=== PATIENT | female | born 1995 | race Caucasian/White ===

== ENCOUNTER 2016-04-03 14:01 | Emergency (ER) | payer OTHER ==
[~2016-04-03] VITALS: Ht 172.7 cm; Wt 65.8 kg
[~2016-04-03 14:01] MED LIST: AMOXICILLIN500 MG PO; CIPRO500 M1 PO; CUTIVATE0.05% TOP; IBUPROFEN800 MG PO; KEFLEX500 MG PO; MOTRIN 800MG T800 MG PO; NEXPLANON68 M1; PENICILLIN V P500 MG PO; PYRIDIUM100 M1 PO; TRIAMCINOLONE 0.1 GM TOP; [UNRECOGNIZED DRUG - OTHER] PO
--- NOTE | 2016-04-03 16:03 | ED UPPER/LOWER EXTREMITY COMPL ---
History of Present Illness General Chief Complaint: Lower Extremity Problems Stated Complaint: L LEG INFECTION? Source: patient Exam Limitations: no limitations Vital Signs & Intake/Output Vital Signs & Intake/Output Vital Signs Date Time Temp Pulse Resp B/P Pulse O2 O2 Flow FiO2 Ox Delivery Rate 04/03 1620 98.2 74 18 112/57 100 Room Air 04/03 1423 98.7 68 18 123/86 100 Room Air Allergies Coded Allergies: apple (Severe, ANAPHYLAXIS 06/23/15) peach (Severe, ANAPHYLAXIS 06/23/15) pear (Severe, ANAPHYLAXIS 06/23/15) Uncoded Allergies: ENVIRONMENTAL (Intermediate, WATERY EYES, CONGESTION 07/07/15) Reconcile Medications Ciprofloxacin HCl (Cipro) 500 MG TABLET 1 TAB PO BID PYELONEPHRITIS Doxycycline Hyclate 100 MG CAPSULE 1 CAP PO BID ABSCESS Etonogestrel (Nexplanon) 68 MG IMPLANT CONTROL (Reported) Hydrocodone/Acetaminophen (Vicodin 5-300 MG Tablet) 5 MG-300 MG TABLET 1 TAB PO BID PRN PAIN Phenazopyridine HCl (Pyridium) 100 MG TABLET 1 TAB PO TID DYSURIA yOUR URINE COLOR MAY CHANGE ORANGE WITH MEDICATION TAKE WITH FOOD Triage Note: 21 Y/O FEMALE C/O SWELLING AND REDNESS TO L LATERAL ANKLE/LOWER EXTREMITY. PT STATES SHE NOTICED A SMALL AREA LAST TUES THAT HAS PROGRESSIVELY GOTTEN LARGER, MORE INFLAMMED AND MORE RED. [facility] NOTED WITH SURROUNDING REDNESS. 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 PT STATES SHE HAS ALSO BEEN ON AUGMENTIN X 4 DAYS WITH NO IMPROVEMENT. AFEBRILE. PT DENIES DRAINAGE AT SITE. Triage Nurses Notes Reviewed? yes Onset: Gradual Duration: week(s): (1) Timing: no prior history Severity: moderate Severity Numbers: 8 Pain/Injury Location: Left: Leg. Method of Injury: unknown Modifying Factors: Improves With: immobilization. Worsens With: movement. : No Patient currently breastfeeds: No HPI: Patient is a 21-year-old female presenting to the emergency department with chief complaint of redness swelling and pain to the left lower extremity that started about one week ago progressively getting worse. Unsure if she was bitten by anything. She reports tactile fevers and chills. She's been on Augmentin for the past 4 days with little improvement in her symptoms. Denies taking anything for pain. 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 No history of similar symptoms. No known history of MRSA. Past History Travel History Traveled to [place] past 21 day No Medical History Any Pertinent Medical History? 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 No Review of Systems Review of Systems Constitutional: Reports: see HPI, chills, malaise. Comments Review of systems: See HPI, All other systems negative. Constitutional, no weight loss HEENT: No visual changes no sore throat no congestion Cardiovascular: No chest pain Skin, no jaundice no rashes Respiratory: No dyspnea cough sputum or hemoptysis GI: no vomiting Muscle skeletal: no back pain, no neck pain, Neurologic: No numbness Immunology: No splenectomy or history of AIDS Physical Exam Physical Exam General Appearance: well developed/nourished, no apparent distress, alert, awake , comfortable Comments: Well-developed well-nourished person in no acute distress HEENT: Pupils equally round and reactive to light and accommodation. Nose is atraumatic. Neck: Normal inspection Back: Nontender Cardiovascular: normal JVP Respiratory: No respiratory distress Extremity: Mild nonpitting edema noted to the left reeder area extending down to the lateral malleolus. Pedal pulses are 2+ bilaterally. Cap refill intact in lower extremities. Neuro: Alert oriented x3, motor sensory normal Skin: There is an area of erythema approximately 6 cm in diameter noted on the lateral aspect of the left reeder, fluctuance approximately 2-3 cm in size over the central acetaminophen this area. No discharge present. Very tender to palpation. Very warm. Psych: Mood and affect is normal, memory and judgment is normal. Progress Differential Diagnosis: cellulitis, asbcess Plan of Care: Orders Procedure Date/time Status Add-on Test (ER Only) 04/03 1737 Active EXTREMETIES CULTURE 04/03 1735 Active BLOOD CULTURE 04/03 1603 Active COMPREHENSIVE METABOLIC PANEL 04/03 1603 Complete CBC WITHOUT DIFFERENTIAL 04/03 1603 Complete Laboratory Tests 04/03/16 1614: Anion Gap 15, Estimated GFR > 60, BUN/Creatinine Ratio 9.1, Glucose 92, Calcium 10.5 H, Total Bilirubin 0.5, AST 23, ALT 22, Alkaline Phosphatase 118, Total Protein 9.4 H, Albumin 5.6 H, Globulin 3.8, Albumin/Globulin Ratio 1.5, CBC w Diff NO MAN DIFF REQ, RBC 5.65 H, MCV 78.0 L, MCH 25.6 L, RDW 15.7 H, MPV 7.3 L, Gran % 74.5, Lymphocytes % 21.0, Monocytes % 3.1, Eosinophils % 0.9, Basophils % 0.5, Absolute Granulocytes 7.4 H, Absolute Lymphocytes 2.1, Absolute Monocytes 0.3, Absolute Eosinophils 0.1, Absolute Basophils 0, PUBS MCHC 32.8 L Microbiology 04/03 173 EXTREMITIE: Culture & Sensitivity - ORD 04/03 173 EXTREMITIE: Gram Stain - ORD 04/03 161 BLOOD: Blood Culture - RECD Departure Departure Time of Disposition: 1727 Disposition: HOME OR SELF CARE Condition: Stable Clinical Impression Primary Impression: Abscess Referrals: ATTILA GIBSON,NICKOLAS Gates (PCP/Family) Additional Instructions: Return in 2 days for wound check. Take Augmentin and doxycycline as prescribed. Take Vicodin for severe pain. He can use [id number] Motrin as well. Elevate leg as much as possible. Return for worsening symptoms or concerns. Departure Forms: Customer Survey General Discharge Information Prescriptions: Current Visit Scripts Doxycycline Hyclate 1 CAP PO BID #20 CAP Hydrocodone/Acetaminophen (Vicodin 5-300 MG Tablet) 1 TAB PO BID PRN PAIN #10 TAB Procedures Incision and Drainage Site: left reeder Blade Size: 11 I & D Procedure: Yes: betadine prep, sterile drapes applied, sterile dressing applied. No: wick placed. Progress: small amt of purulent discharge expelled. Irrigated with saline and betadine. sterile dressign placed.
[2016-04-03 16:20] VITALS: BP 112/57
[2016-04-03 16:25] LABS: ABSOLUTE BASOPHIL COUNT 0 /CUMM (0.0-0.2); ABSOLUTE EOSINOPHIL COUNT 0.1 /CUMM (0.0-0.7); ABSOLUTE GRANULOCYTE CT 7.4 /CUMM (1.4-6.5); ABSOLUTE LYMPH COUNT 2.1 /CUMM (1.2-3.4); ABSOLUTE MONOCYTE COUNT 0.3 /CUMM (0.10-0.60); BASOPHIL % 0.5 % (0.0-2.0); EOSINOPHIL % 0.9 % (0-5); GRANULOCYTE % 74.5 % (42.2-75.2); HEMATOCRIT 44.1 % (37-47); MEAN CORPUSCULAR HGB 25.6 PG (27.0-31.0); MEAN CORPUSCULAR HGB CONC 32.8 G/DL (33.0-37.0); MEAN PLATELET VOLUME 7.3 FL (7.4-10.4); PLATELET COUNT 296 /CUMM (130-400); RBC DISTRIBUTION WIDTH 15.7 % (11.5-14.5); RED BLOOD CELL CT 5.65 /CUMM (4.20-5.40); WHITE BLOOD CELL COUNT 9.9 /CUMM (4.8-10.8)
[2016-04-03] MEDS ORDERED: DOXYCYCLINE HY100 M2 PO (17:31)
[2016-04-03] MEDS ORDERED: VICODIN 5-3001 EACH PO (17:31)
== END 2016-04-03 17:55 ==
LOC: ERH 14:01
PROVIDERS: Physician Assistant
DX: L02.416 Cutaneous abscess of left lower limb (principal)
CPT/HCPCS: 86618; 87184; 87040; 87070; 87147; 96374; 96375; J1885

== ENCOUNTER 2017-10-02 22:08 | Emergency (ER) | payer OTHER ==
[~2017-10-02] VITALS: Ht 165.1 cm; Wt 83.0 kg
[~2017-10-02 22:08] MED LIST changes: +DOXYCYCLINE HY100 M2 PO; +VICODIN 5-3001 EACH PO
--- NOTE | 2017-10-02 23:00 | ED GENERAL ADULT ---
History of Present Illness General Chief Complaint: General Adult Stated Complaint: RIGHT SIDE PAIN, NAUSEA PER PT Source: patient Exam Limitations: no limitations Vital Signs & Intake/Output Vital Signs & Intake/Output Vital Signs Date Time Temp Pulse Resp B/P B/P Pulse O2 O2 Flow FiO2 Mean Ox Delivery Rate 10/03 0038 98.9 97 18 119/73 98 Room Air 10/02 2354 99.3 98 18 124/83 10/02 2227 98 Room Air 10/02 2219 99.3 98 18 124/83 98 Room Air ED Intake and Output 10/03 0000 10/02 1200 Intake Total Output Total Balance Patient 183 lb Weight Allergies Coded Allergies: apple (Severe, ANAPHYLAXIS 06/23/15) peach (Severe, ANAPHYLAXIS 06/23/15) pear (Severe, ANAPHYLAXIS 06/23/15) Uncoded Allergies: ENVIRONMENTAL (Intermediate, WATERY EYES, CONGESTION 07/07/15) Reconcile Medications Cephalexin (Keflex) 500 MG CAPSULE 1 CAP PO BID UTI Ciprofloxacin HCl (Cipro) 500 MG TABLET 1 TAB PO BID PYELONEPHRITIS Doxycycline Hyclate 100 MG CAPSULE 1 CAP PO BID ABSCESS Etonogestrel (Nexplanon) 68 MG IMPLANT CONTROL (Reported) Hydrocodone/Acetaminophen (Vicodin 5-300 MG Tablet) 5 MG-300 MG TABLET 1 TAB PO BID PRN PAIN Phenazopyridine HCl (Pyridium) 100 MG TABLET 1 TAB PO TID UTI Phenazopyridine HCl (Pyridium) 100 MG TABLET 1 TAB PO TID DYSURIA yOUR URINE COLOR MAY CHANGE ORANGE WITH MEDICATION TAKE WITH FOOD Triage Note: 22F THINKS SHE MAY HAVE A KIDNEY STONE, REPORTS RIGHT FLANK PAIN RADIATING INTO ABDOMEN. REPORTS DECREASED URINARY OUTPUT, DENIES HEMATURIA OR DYSURIA. TEMP 99.3, HX OBSTRUCTIVE RENAL STONES W PYELONEPHRITIS. +N/-V/-D. Triage Nurses Notes Reviewed? yes Onset: Gradual Duration: hour(s): Timing: constant : No Patient currently breastfeeds: No HPI: 22 y/o female with a h/o obstructing renal stones presenting with right flank pain since this morning. States the pain feels similar to her prior kidney stones. Endorses associated dysuria and urinary frequency/urgency. Denies fevers , NVD, hematuria. Reports that her previous renal stone required stenting and lithotripsy. Past History Travel History Traveled to [place] past 21 day No Medical History Any Pertinent Medical History? 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 No Review of Systems Review of Systems Constitutional: Reports: no symptoms. EENTM: Reports: no symptoms. Respiratory: Reports: no symptoms. Cardiovascular: Reports: no symptoms. GI: Reports: see HPI. Genitourinary: Reports: see HPI. Musculoskeletal: Reports: no symptoms. Skin: Reports: no symptoms. Neurological/Psychological: Reports: no symptoms. Hematologic/Endocrine: Reports: no symptoms. Immunologic/Allergic: Reports: no symptoms. All Other Systems: Reviewed and Negative Physical Exam Physical Exam General Appearance: well developed/nourished, no apparent distress, alert, awake Head: atraumatic, normal appearance Eyes: Bilateral: normal appearance. Neck: normal inspection Respiratory: normal breath sounds, lungs clear Cardiovascular: regular rate/rhythm Gastrointestinal: soft, non-tender Back: normal inspection, No CVA tenderness Extremities: normal inspection Neurologic/Psych: awake, alert, oriented x 3, normal gait, normal mood/affect Skin: intact, normal color, warm/dry Core Measures ACS in differential dx? No CVA/TIA Diagnosis: No Sepsis Present: No Sepsis Focused Exam Completed? No Progress Differential Diagnoses I considered the following diagnoses in my evaluation of the patient: [ ureterolithiasis vs hydronephrosis vs UTI vs pyelo] Plan of Care: Orders Procedure Date/time Status CULTURE,URINE 10/027 Active Add-on Test (ER Only) 10/02 2253 Active CBC WITHOUT DIFFERENTIAL 10/02 225 Complete BASIC METABOLIC PANEL 10/02 225 Complete URINE 10/02 2222 Complete URINALYSIS 10/02 2218 Complete Laboratory Tests 10/02/17 2305: Anion Gap 11, Estimated GFR > 60, BUN/Creatinine Ratio 14.0, Glucose 83, Calcium 9.4, CBC w Diff NO MAN DIFF REQ, RBC 4.93, MCV 82.2, MCH 27.5, MCHC 33.5, RDW 13.8, MPV 6.4 L, Gran % 60.8, Lymphocytes % 30.5, Monocytes % 5.9, Eosinophils % 2.6, Basophils % 0.2, Absolute Granulocytes 3.9, Absolute Lymphocytes 2.0, Absolute Monocytes 0.4, Absolute Eosinophils 0.2, Absolute Basophils 0 10/02/172221: Urine Test NEGATIVE 10/02/17 222: Urine Color YEL, Urine Clarity CLDY H, Urine pH 6.0, Ur Specific Ronda >= 1.030, Urine Protein TRACE H, Urine Ketones TRACE H, Urine Nitrite POS H, Urine Bilirubin NEG, Urine Urobilinogen 0.2, Ur Leukocyte Esterase SMALL H, Ur Microscopic SEDIMENT EXAMINED, Urine RBC 1-3, Urine WBC 25-50 H, Ur Epithelial Cells MANY H, Urine Bacteria PACKD H, Urine Hemoglobin TRACE-INTACT, Urine Glucose NEG Microbiology 10/02 2346 URINE ROUT: Urine Culture - RECD CT scan IMPRESSION: No right-sided hydronephrosis or renal/ureteral calculus. Left lower pole calculus measuring up to 9 mm, without hydronephrosis. UA is suspicious for UTI, culture sent, given single dose of ceftriaxone in ED. Labs unremarkable, no leukocytosis, normal kidney function. Will discharge home with rx keflex. Instrcuted to f/u with PMD and given strict return precautions. Initial ED EKG: none Departure Departure Disposition: HOME OR SELF CARE Condition: Stable Clinical Impression Primary Impression: UTI (urinary tract infection) Referrals: Dena GIBSON,Savanah Gates (PCP/Family) Additional Instructions: Take Keflex as prescribed. Use Pyridium as needed for pain. Follow-up with your primary care provider for reevaluation. Return to the emergency department for any new or worsening symptoms. Departure Forms: Customer Survey General Discharge Information Prescriptions: Current Visit Scripts Cephalexin (Keflex) 1 CAP PO BID #20 CAP Phenazopyridine HCl (Pyridium) 1 TAB PO TID #6 TAB Critical Care Note Critical Care Note Critical Care Time: non-applicable
[2017-10-02 23:12] LABS: ABSOLUTE BASOPHIL COUNT 0 /CUMM (0.0-0.2); ABSOLUTE EOSINOPHIL COUNT 0.2 /CUMM (0.0-0.7); ABSOLUTE GRANULOCYTE CT 3.9 /CUMM (1.4-6.5); ABSOLUTE MONOCYTE COUNT 0.4 /CUMM (0.10-0.60); BASOPHIL % 0.2 % (0.0-2.0); EOSINOPHIL % 2.6 % (0-5); GRANULOCYTE % 60.8 % (42.2-75.2); HEMATOCRIT 40.5 % (37-47); MEAN CORPUSCULAR HGB 27.5 PG (27.0-31.0); MEAN CORPUSCULAR HGB CONC 33.5 G/DL (33.0-37.0); MEAN CORPUSCULAR VOLUME 82.2 FL (81.0-99.0); MEAN PLATELET VOLUME 6.4 FL (7.4-10.4); PLATELET COUNT 271 /CUMM (130-400); RBC DISTRIBUTION WIDTH 13.8 % (11.5-14.5); RED BLOOD CELL CT 4.93 /CUMM (4.20-5.40); WHITE BLOOD CELL COUNT 6.4 /CUMM (4.8-10.8)
--- NOTE | 2017-10-03 00:19 | CT SCAN REPORT ---
EXAMINATION: CT ABDOMEN AND PELVIS WITHOUT CONTRAST CLINICAL INFORMATION: Right flank pain COMPARISON: 07/07/2015 TECHNIQUE: Multidetector volumetric imaging was performed from the superior aspect of the liver through the pubic symphysis. Sagittal and coronal reformatted images were obtained on the technologist's workstation. DLP: 377.22 mGy-cm FINDINGS: LUNG BASES: The visualized lung bases are unremarkable. LIVER, GALLBLADDER, AND BILIARY TREE: The liver is normal in size, shape, and attenuation. No focal hepatic lesion or biliary ductal dilatation is present. The gallbladder is grossly unremarkable. PANCREAS: Unremarkable. SPLEEN: Borderline enlarged. ADRENAL GLANDS: Unremarkable. KIDNEYS AND URETERS: There is a left lower pole renal calculus measuring up to 9 mm in length. No right-sided renal calculi are seen. No hydronephrosis or ureteral calculus bilaterally. BLADDER: Unremarkable. GASTROINTESTINAL TRACT: The small and large bowel are unremarkable. The appendix is unremarkable. No free fluid or free air is seen. ABDOMINAL WALL: No significant hernia is appreciated. LYMPH NODES: Normal. VASCULAR: Unremarkable. PELVIC VISCERA: Unremarkable. OSSEOUS STRUCTURES: Unremarkable. IMPRESSION: No right-sided hydronephrosis or renal/ureteral calculus. Left lower pole calculus measuring up to 9 mm, without hydronephrosis.
[2017-10-03] MEDS ORDERED: KEFLEX500 M1 PO (00:31)
[2017-10-03] MEDS ORDERED: PYRIDIUM100 M1 PO (00:32)
[2017-10-03 00:38] VITALS: BP 119/73
== END 2017-10-03 00:39 ==
LOC: ERH 22:08
PROVIDERS: Physician Assistant
DX: N39.0 Urinary tract infection, site not specified (principal); R10.9 Unspecified abdominal pain; R30.0 Dysuria
CPT/HCPCS: 74176; 81001; 81025; 87086; 96361; 96374; 96375; J0696; J1885; J2405